=== PATIENT | female | born 1990 | race Two or more races ===

== ENCOUNTER 2019-09-16 11:10 | Emergency (ER) | payer MEDICAID, OTHER ==
[~2019-09-16] VITALS: Ht 152.4 cm; Wt 72.1 kg
[2019-09-16 11:27] VITALS: BP 108/76
== END 2019-09-16 13:55 | disposition home or self-care (01) ==
LOC: ER 11:10
DX: J02.9 Acute pharyngitis, unspecified (principal); Z87.440 Personal history of urinary (tract) infections
CPT/HCPCS: 71046

== ENCOUNTER 2021-01-15 10:42 | Emergency (ER) | payer MEDICAID ==
[~2021-01-15] VITALS: Ht 157.5 cm; Wt 68.0 kg
[2021-01-15 11:04] VITALS: BP 113/74
== END 2021-01-15 12:07 | disposition home or self-care (01) ==
LOC: ER 10:42
DX: J01.90 Acute sinusitis, unspecified (principal)

== ENCOUNTER 2021-01-19 15:39 | Emergency (ER) | payer MEDICAID ==
[~2021-01-19] VITALS: Ht 154.9 cm; Wt 71.7 kg
[2021-01-19 15:53] VITALS: BP 110/75
== END 2021-01-19 19:07 | disposition home or self-care (01) ==
LOC: ER 15:39
DX: J01.90 Acute sinusitis, unspecified (principal)

== ENCOUNTER 2021-08-17 10:37 | Emergency (ER) | payer MEDICAID ==
[~2021-08-17] VITALS: Ht 152.4 cm; Wt 72.6 kg
[2021-08-17 11:34] VITALS: BP 133/76
== END 2021-08-17 11:40 | disposition home or self-care (01) ==
LOC: ER 10:37
DX: J20.9 Acute bronchitis, unspecified (principal)
CPT/HCPCS: 71046

== ENCOUNTER 2021-10-22 10:46 | Emergency (ER) | payer MEDICAID ==
[~2021-10-22] VITALS: Ht 154.9 cm; Wt 73.5 kg
[2021-10-22 10:46] VITALS: BP 114/80
== END 2021-10-22 18:03 | disposition left against medical advice (07) ==
LOC: ER 10:46
DX: U07.1 COVID-19 (principal); R05.9 Cough, unspecified; R19.7 Diarrhea, unspecified; Z53.21 Procedure and treatment not carried out due to patient leaving prior to being seen by health care provider
CPT/HCPCS: 36415; 71045; 87426

== ENCOUNTER 2022-10-30 19:33 | Emergency (ER) | payer MEDICAID ==
[~2022-10-30] VITALS: Ht 154.9 cm; Wt 73.9 kg
[2022-10-30 19:50] VITALS: BP 110/65
[2022-10-30] MEDS ORDERED: CEPH-510 PO (21:29)
[2022-10-30] MEDS: IBUPROFEN 800 MG TAB PO ONE (21:57)
[2022-10-30] MEDS: TETANUS-DIPTH-ACEL PERTUSSIS 0.5ML SYR Tdap IM ONE (21:58)
== END 2022-10-30 22:06 | disposition home or self-care (01) ==
LOC: ER 19:33
DX: S61.301A Unspecified open wound of left index finger with damage to nail, initial encounter (principal); W26.0XXA Contact with knife, initial encounter; Y93.89 Activity, other specified; Y92.89 Other specified places as the place of occurrence of the external cause; Y99.8 Other external cause status
CPT/HCPCS: 90471; 90715

== ENCOUNTER 2023-09-18 08:39 | Emergency (ER) | payer SELFPAY ==
[~2023-09-18] VITALS: Ht 154.9 cm; Wt 75.0 kg
[~2023-09-18 08:39] MED LIST: CEPH-510 PO
[2023-09-18 10:09] VITALS: BP 112/69; PULSE 104; RESP 18; TEMP 98.6; O2SAT 100
[2023-09-18] MEDS ORDERED: cefTRIAXone SOD 1,000 MG VL IM ONE (10:15)
[2023-09-18] MEDS ORDERED: IBUP-1454 PO (10:27)
[2023-09-18] MEDS ORDERED: AZIT-81 PO (10:27)
== END 2023-09-18 10:56 | disposition home or self-care (01) ==
LOC: ER 08:39
DX: J03.90 Acute tonsillitis, unspecified (principal); Z79.1 Long term (current) use of non-steroidal anti-inflammatories (NSAID); Z79.899 Other long term (current) drug therapy
CPT/HCPCS: 96372; 99283; J0696